=== PATIENT | female | born 1955 | race Caucasian/White ===

== ENCOUNTER 2017-12-18 22:26 | Emergency (ER) | payer MEDICARE, OTHER ==
[2017-12-19 00:20] VITALS: BP 151/72
[2017-12-19] MEDS ORDERED: HYDROmorphone 1 MG/ML Syringe IM ONE (00:43)
--- NOTE | 2017-12-19 00:49 | EDM.PDOC ---
ED HPI GENERAL MEDICAL PROBLEM - General Chief Complaint: Lower Extremity Injury/Pain Stated Complaint: LEFT KNEE PAIN Time Seen by Provider: 12/19/17 00:35 Source of Information: Reports: Patient History Limitations: Reports: No Limitations - History of Present Illness INITIAL COMMENTS - FREE TEXT/NARRATIVE: Left knee pain: This is a 62-year-old female presents emergency room with her , reports left knee pain very severe for the past 2 days, but has had chronic knee pain for months. she reports no injury to the knee. Denies fever or chills. She is scheduled for orthopedic appointment at 09:30 tomorrow, but came in tonight due to pain. She is requesting an MRI. 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, NSAIDS Left Knee Pain Score (Numeric/FACES): 5 - Related Data Allergies Allergy/AdvReac Type Severity Reaction Status Date / Time codeine Allergy Itching Verified 12/19/17 00:21 Home Meds: Home Meds Clotrimazole [Clotrimazole 1%] 1 film TOP BID PRN 09/10/15 [History] Cyclobenzaprine [Flexeril] 30 mg PO BEDTIME PRN 09/10/15 [History] Levothyroxine 150 mcg PO DAILY 09/10/15 [History] Liothyronine [Cytomel] 5 mcg PO DAILY 09/10/15 [History] Melatonin 40 mg PO BEDTIME 09/23/15 [History] Diclofenac Sodium [Voltaren] 1 tab PO BID 12/19/17 [History] Past Medical History HEENT History: Reports: Allergic Rhinitis, Impaired Vision Respiratory History: Reports: Pneumonia, Recurrent Gastrointestinal History: Reports: None Genitourinary History: Reports: Renal Calculus, UTI, Recurrent 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: Musculoskeletal History: Reports: Back Pain, Chronic, Fibromyalgia, Osteoarthritis Endocrine/Metabolic History: Reports: Hypothyroidism, Obesity/BMI 30+ Hematologic History: Reports: Anemia Dermatologic History: Reports: Other (See Below) Other Dermatologic History: skin blanching, lack of pigment - Infectious Disease History Infectious Disease History: Reports: Chicken Pox, Mumps - Past Surgical History HEENT Surgical History: Reports: Oral Surgery, Other (See Below) Other HEENT Surgeries/Procedures: eyelid surgery GI Surgical History: Reports: Cholecystectomy, EGD Female Surgical History: Reports: Kidney stone extraction, Tubal Ligation Musculoskeletal Surgical History: Reports: Arthroscopic Knee Social & Family History - Tobacco Use Smoking Status *Q: Never Smoker - Caffeine Use Caffeine Use: Reports: Tea - Recreational Drug Use Recreational Drug Use: No Review of Systems - Review of Systems Review Of Systems: See Below Constitutional: Reports: No Symptoms Eyes: Reports: No Symptoms Ears: Reports: No Symptoms Nose: Reports: No Symptoms Mouth/Throat: Reports: No Symptoms Respiratory: Reports: No Symptoms Cardiovascular: Reports: No Symptoms GI/Abdominal: Reports: No Symptoms Genitourinary: Reports: No Symptoms Musculoskeletal: Reports: Leg Pain (Left knee pain) Skin: Reports: No Symptoms Neurological: Reports: No Symptoms Psychiatric: Reports: No Symptoms ED EXAM, GENERAL - Physical Exam Exam: See Below Exam Limited By: No Limitations General Appearance: Alert, WD/WN, Moderate Distress (She is sitting in the wheelchair, unable to bear weight on the left knee.), Obese Respiratory/Chest: No Respiratory Distress Cardiovascular: Regular Rate, Rhythm, No Murmur Extremities: Normal Inspection, Other (Left knee he has pain with flexion or extension. And weightbearing. Knee: No redness, no edema, no pops or clicks noted noted.) Neurological: Alert, Oriented, Normal Cognition Psychiatric: Tearful Skin Exam: Warm, Dry, Intact, Normal Color, No Rash Lymphatic: No Adenopathy Course - Vital Signs Last Recorded V/S: Last Vital Signs Temp 35.7 C 12/19/17 00:27 Pulse 66 12/19/17 00:27 Resp 16 12/19/17 00:27 BP 151/72 H 12/19/17 00:27 Pulse Ox 98 12/19/17 00:27 - Orders/Labs/Meds Meds: Medications Discontinued Medications Generic Name Dose Route Start Last Admin Trade Name Freq PRN Reason Stop Dose Admin Hydromorphone HCl 1 mg 12/19/17 00:43 12/19/17 00:51 Dilaudid IM 12/19/17 00:44 1 mg ONETIME ONE Administration - Re-Assessments/Exams Free Text/Narrative Re-Assessment/Exam: 12/19/17: Discussed with Mrs. Kaur, MRI is not available at night for scanning. Personnel is not available. Will medicate for pain, apply Jose wrap or knee splint, and crutches for [id number]. Advised to keep appointment in the morning with orthopedics. and Mrs. Kaur, agree with plan of care and will follow up in a.m. as scheduled. Departure - Departure Time of Disposition: :18 Disposition: Home, Self-Care 01 Condition: Good Clinical Impression: Degenerative joint disease of knee, left Qualifiers: Osteoarthritis type: unspecified Qualified Code(s): M17.12 - Unilateral primary osteoarthritis, left knee - Discharge Information Instructions: Osteoarthritis Referrals: PCP,None [Primary Care Provider] - Forms: ED Department Discharge Care Plan Goals: knee pain -given pain shot in ER, -advise to wear knee brace, crutches -medicate for pain keep ortho appt in am for further evaluation - Problem List & Annotations (1) Degenerative joint disease of knee, left SNOMED Code(s): 106651433763941 Code(s): M17.12 - UNILATERAL PRIMARY OSTEOARTHRITIS, LEFT KNEE Status: Acute Priority: High Qualifiers: Osteoarthritis type: unspecified Qualified Code(s): M17.12 - Unilateral primary osteoarthritis, left knee - Problem List Review Problem List Initiated/Reviewed/Updated: Yes - Assessment/Plan Plan: knee pain -given pain shot in ER, -advise to wear knee brace, crutches -medicate for pain keep ortho appt in am for further evaluation
== END 2017-12-19 01:18 | disposition home or self-care (01) ==
LOC: JP.ED 22:26
DX: M17.12 Unilateral primary osteoarthritis, left knee (principal); E03.9 Hypothyroidism, unspecified; Z79.899 Other long term (current) drug therapy; Z88.5 Allergy status to narcotic agent
CPT/HCPCS: 96372; 99283; J1170

== ENCOUNTER 2018-10-06 11:10 | Emergency (ER) | payer MEDICARE, OTHER ==
[2018-10-06 12:36] VITALS: BP 144/77
[2018-10-06] MEDS ORDERED: Sodium Chloride 0.9% 10 ML Syringe FLUSH PRN (13:03)
[2018-10-06] MEDS ORDERED: LORazepam 2 MG/ML SDV IVPUSH ONE (13:05)
[2018-10-06] MEDS ORDERED: Sodium Chloride 0.9% 100 ML IV ONE (13:07)
[2018-10-06] MEDS ORDERED: Sodium Chloride 0.9% 10 ML Syringe FLUSH ONE (13:07)
--- NOTE | 2018-10-06 13:07 | EDM.PDOC ---
ED HPI GENERAL MEDICAL PROBLEM - General Chief Complaint: Neurological Problem Stated Complaint: VERTIGO Time Seen by Provider: 10/06/18 12:52 Source of Information: Reports: Patient, Family, RN Notes Reviewed History Limitations: Reports: No Limitations - History of Present Illness INITIAL COMMENTS - FREE TEXT/NARRATIVE: 63-year-old female presents emergency department today complaint of new onset of dizziness, she states it started this morning has progressively gotten worse she is nauseated has difficulty ambulating wants to fall to the right - Related Data Allergies Allergy/AdvReac Type Severity Reaction Status Date / Time codeine Allergy Itching Verified 10/06/18 12:29 Home Meds: Home Meds Clotrimazole [Clotrimazole 1%] 1 film TOP BID PRN 09/10/15 [History] Cyclobenzaprine [Flexeril] 30 mg PO BEDTIME PRN 09/10/15 [History] Levothyroxine 150 mcg PO DAILY 09/10/15 [History] Liothyronine [Cytomel] 5 mcg PO DAILY 09/10/15 [History] Melatonin 40 mg PO BEDTIME 09/23/15 [History] Diclofenac Sodium [Voltaren] 1 tab PO BID 12/19/17 [History] Past Medical History HEENT History: Reports: Allergic Rhinitis, Impaired Vision Respiratory History: Reports: Pneumonia, Recurrent Genitourinary History: Reports: Renal Calculus, UTI, Recurrent 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: Musculoskeletal History: Reports: Back Pain, Chronic, Fibromyalgia, Osteoarthritis Endocrine/Metabolic History: Reports: Hypothyroidism, Obesity/BMI 30+ Hematologic History: Reports: Anemia Dermatologic History: Reports: Other (See Below) Other Dermatologic History: skin blanching, lack of pigment - Infectious Disease History Infectious Disease History: Reports: Chicken Pox, Mumps - Past Surgical History HEENT Surgical History: Reports: Oral Surgery, Other (See Below) Other HEENT Surgeries/Procedures: eyelid surgery GI Surgical History: Reports: Cholecystectomy, EGD Female Surgical History: Reports: Kidney stone extraction, Tubal Ligation Musculoskeletal Surgical History: Reports: Arthroscopic Knee Social & Family History - Tobacco Use Smoking Status *Q: Never Smoker - Caffeine Use Caffeine Use: Reports: Tea ED ROS GENERAL - Review of Systems Review Of Systems: See Below Constitutional: Reports: No Symptoms HEENT: Reports: Vertigo Respiratory: Reports: No Symptoms Cardiovascular: Reports: No Symptoms GI/Abdominal: Reports: No Symptoms : Reports: No Symptoms ED EXAM, DIZZINESS - Physical Exam Exam: See Below Text/Narrative:: General: Female, not in any distress, alert and oriented x3 HEENT: head is atraumatic normocephalic, eyes pupils equal round reactive to light, sclera clear no conjunctivitis appreciated, extraocular eye movements intact. Ears tympanic membranes clear and watkins landmarks and light reflex are present bilaterally canals are clear. Nose no septal deviation, nares are clear, no blood present. Mouth mucosa is moist and pink no erythema or exudate noted in soft palate, tongue is midline uvula is midline, dentition is intact. Neck: Supple no thyromegaly no tracheal deviation. Nodes: Cervical nodes subclavicular nodes nontender no palpable lymphadenopathy noted. Lungs: clear to auscultation bilaterally with symmetrical respirations, no adventitious noise appreciated. CV: Regular rate and rhythm S1 and S2 appreciated no murmurs rubs or gallops noted. Abdomen: Soft, nontender, no palpable masses or organomegaly appreciated, no distention no guarding bowel sounds are present, . Neuro: Head impulse test: Positive loss of fixation with corrective saccades when head turned to the to the left Nystagmus: unidirectional, horizontal 0-beating nystagmus Skew deviation: grossly absent Course - Vital Signs Last Recorded V/S: Last Vital Signs Temp 97.1 F 10/06/18 12:33 Pulse 72 10/06/18 12:33 Resp 14 10/06/18 12:33 BP 144/77 H 10/06/18 12:33 Pulse Ox 97 10/06/18 12:33 - Orders/Labs/Meds Orders: Active Orders 24 hr Category Date Time Status Peripheral IV Care [RC] . DIRECTED Care 10/06/18 13:04 Active Sodium Chloride 0.9% [Normal Saline] 1,000 ml Med 10/06/18 13:15 Active IV ASDIRECTED Sodium Chloride 0.9% [Saline Flush] Med 10/06/18 13:03 Active 10 ml FLUSH ASDIRECTED PRN Peripheral IV Insertion Adult [OM.PC] Urgent Oth 10/06/18 13:03 Ordered Medication Orders Sodium Chloride (Normal Saline) 1,000 mls @ 500 mls/hr IV ASDIRECTED YONIS Last Admin: 10/06/18 13:24 Dose: 500 mls/hr Sodium Chloride (Saline Flush) 10 ml FLUSH ASDIRECTED PRN PRN Reason: Keep Vein Open Last Admin: 10/06/18 13:58 Dose: 10 ml Labs: Laboratory Tests 10/06/18 10/06/18 Range/Units 13:14 13:14 WBC 7.0 (4.5-11.0) K/uL RBC 4.83 (3.30-5.50) M/uL Hgb 14.2 (12.0-15.0) g/dL Hct 43.8 (36.0-48.0) % MCV 91 (80-98) fL MCH 29 (27-31) pg MCHC 32 (32-36) % Plt Count 328 (150-400) K/uL Neut % (Auto) 65 (36-66) % Lymph % (Auto) 23 L (24-44) % Nash % (Auto) 9 H (2-6) % Eos % (Auto) 2 (2-4) % Baso % (Auto) 1 (0-1) % Sodium 139 L (140-148) mmol/L Potassium 4.0 (3.6-5.2) mmol/L Chloride 103 (100-108) mmol/L Carbon Dioxide 30 (21-32) mmol/L Anion Gap 10.0 (5.0-14.0) mmol/L BUN 17 (7-18) mg/dL Creatinine 0.9 (0.6-1.0) mg/dL Est Cr Clr Drug Dosing 56.82 mL/min Estimated GFR (MDRD) > 60 (>60) Glucose 107 H (74-106) mg/dL Calcium 9.1 (8.5-10.1) mg/dL Meds: Medications Generic Name Dose Route Start Last Admin Trade Name Freq PRN Reason Stop Dose Admin Sodium Chloride 1,000 mls @ 500 mls/hr 10/06/18 13:15 10/06/18 13:24 Normal Saline IV 500 mls/hr ASDIRECTED YONIS Administration Sodium Chloride 10 ml 10/06/18 13:03 10/06/18 13:58 Saline Flush FLUSH 10 ml ASDIRECTED PRN Administration Keep Vein Open Discontinued Medications Generic Name Dose Route Start Last Admin Trade Name Freq PRN Reason Stop Dose Admin Sodium Chloride 100 mls @ 3.5 mls/sec 10/06/18 13:07 10/06/18 13:59 Normal Saline IV 10/06/18 13:08 3.5 mls/sec ONETIME ONE Administration Iopamidol 100 ml 10/06/18 13:15 10/06/18 13:58 Isovue-370 (76%) IV 10/06/18 14:00 80 ml . DIRECTED YONIS Administration Lorazepam 1 mg 10/06/18 13:05 10/06/18 13:22 Ativan IVPUSH 10/06/18 13:06 1 mg ONETIME ONE Administration Sodium Chloride 10 ml 10/06/18 13:07 10/06/18 13:22 Saline Flush FLUSH 10/06/18 13:08 10 ml ONETIME ONE Administration Departure - Departure Time of Disposition: 15:31 Disposition: Home, Self-Care 01 Condition: Fair Clinical Impression: Vertigo - Discharge Information Referrals: Andres Harris PA [Primary Care Provider] - Forms: ED Department Discharge Additional Instructions: Use Ativan as needed for dizzy symptoms, Please followup with your primary care provider in 3-5 days if not better, please call return to the emergency department with worsening of symptoms. - My Orders Last 24 Hours: My Active Orders 10/06/18 13:03 Sodium Chloride 0.9% [Saline Flush] 10 ml FLUSH ASDIRECTED PRN Peripheral IV Insertion Adult [OM.PC] Urgent 10/06/18 13:04 Peripheral IV Care [RC] . DIRECTED 10/06/18 13:15 Sodium Chloride 0.9% [Normal Saline] 1,000 ml IV ASDIRECTED - Assessment/Plan Last 24 Hours: My Active Orders 10/06/18 13:03 Sodium Chloride 0.9% [Saline Flush] 10 ml FLUSH ASDIRECTED PRN Peripheral IV Insertion Adult [OM.PC] Urgent 10/06/18 13:04 Peripheral IV Care [RC] . DIRECTED 10/06/18 13:15 Sodium Chloride 0.9% [Normal Saline] 1,000 ml IV ASDIRECTED Plan: Assessment Acuity = acute Site and laterality = vertigo Etiology = unclear suspicious for vestibular neuritis Manifestations = none Location of injury = Home Lab values = CBC, BMP CTA negative for any acute process Plan She had good improvement with 1 mg Ativan provided was able to ambulate in the [place] felt significantly more stable than presentation, plan is to discharge to home prescription written for Ativan 1 mg by mouth twice a day when necessary total #10 follow-up primary care in 3-5 days if no improvement This note was dictated using [email or web address] recognition software please call with any questions on syntax or grammar.
[2018-10-06] MEDS ORDERED: Sodium Chloride 0.9% 1,000 ML IV SCH (13:15)
[2018-10-06] MEDS ORDERED: Iopamidol 755 Mg/ML 100 ML Bottle IV SCH (13:15)
--- NOTE | 2018-10-06 14:54 | CRLCT ---
INDICATION Vertigo. TECHNIQUE CT angiography was performed through the head following administration of intravenous contrast. Maximal intensity projection reformatted images were created. COMPARISON None. FINDINGS The major vessels of the anterior circulation, including the internal carotid, middle cerebral, and anterior cerebral arteries are patent without significant narrowing. Anterior communicating artery is visualized. The major vessels of the posterior circulation, including the vertebral, basilar, posterior cerebral arteries are patent without significant narrowing. The vertebral arteries are codominant. The origins of the posterior inferior cerebellar arteries are identified bilaterally. No intracranial aneurysm. IMPRESSION No CTA abnormality of the intracranial arteries. Please note that all CT scans at this facility use dose modulation, iterative reconstruction, and/or weight-based dosing when appropriate to reduce radiation dose to as low as reasonably achievable. Dictated by Shukri Goldberg MD @ Oct 06 2018 10:17PM Signed by Dr. Shukri Goldberg @ Oct 06 2018 10:19PM
== END 2018-10-06 16:36 | disposition home or self-care (01) ==
LOC: JP.ED 11:10
DX: R42 Dizziness and giddiness (principal); Z88.5 Allergy status to narcotic agent; Z79.899 Other long term (current) drug therapy
CPT/HCPCS: 36415; 70496; 80048; 85025; 96361; 96374; 99284; J2060; J7030; Q9967